=== PATIENT | female | born 1950 | race Asian ===

== ENCOUNTER 2017-02-26 04:22 | Emergency (ER) | payer OTHER ==
[2017-02-26 04:44] VITALS: BP 126/85; PULSE 87; TEMP 98.2; BMI 34.2
--- NOTE | 2017-02-26 04:51 | PDOC ---
History of Present Illness - General Chief Complaint: Hematuria Stated Complaint: BLOOD IN URINE Time Seen by Provider: 02/26/17 04:34 - History of Present Illness Initial Comments: 02/26/17 04:43 CHIEF COMPLAINT: blood in urine HISTORY OF PRESENT ILLNESS: 66 year old female with significant past medical history of HTN, HLD, diabetes, and gastritis who presents to the ED with hematuria x 1 day. Patient reports that she noticed blood in her urine starting last night at 10:30. She has had UTIs in the past "but never this much blood." PAST MEDICAL HISTORY: Denies past medical history FAMILY HISTORY: Denies SOCIAL HISTORY: Denies tobacco, alcohol, illicit drug use. SURGICAL HISTORY: Denies ALLERGIES: No known drug allergies REVIEW OF SYSTEMS General/Constitutional: Denies fever or chills. Denies weakness, weight change. HEENT: Denies change in vision. Denies ear pain or discharge. Denies sore throat. Cardiovascular: Denies chest pain or shortness of breath. Respiratory: Denies cough, wheezing, or hemoptysis. Gastrointestinal: Denies nausea, vomiting, diarrhea or constipation. Denies rectal bleeding. Genitourinary: Dysuria, hematuria, urinary frequency. Musculoskeletal: Denies joint or muscle swelling or pain. Denies neck or back pain. Skin and breasts: Denies rash or easy bruising. Neurologic: Denies headache, vertigo, loss of consciousness, or loss of sensation. PHYSICAL EXAM General Appearance: Well-appearing, appropriately dressed. No apparent distress , no intoxication. HEENT: EOMI, PERRLA. Respiratory/Chest: Lungs CTAB. Cardiovascular: RRR. S1, S2. Gastrointestinal/Abdominal: Normal bowel sounds. Abdomen soft, non-distended. No tenderness or rebound tenderness. No organomegaly, pulsatile mass, guarding , hernia, hepatomegaly, splenomegaly. Musculoskeletal/Extremities: Normal inspection. FROM of all extremities, normal capillary refill. Pelvis Stable. No CVA tenderness. No tenderness to extremities, pedal edema, swelling, erythema or deformity. Integumentary: Appropriate color, dry, warm. No cyanosis, erythema, jaundice or rash Neurologic: agricultural produce sorter II-XII intact. Fully oriented, alert. Appropriate mood/affect. Motor strength 5/5. No appreciable EOM palsy, facial droop or sensory deficit. 02/26/17 05:22 Past History - Past Medical History Allergies/Adverse Reactions: Allergies Allergy/AdvReac Type Severity Reaction Status Date / Time No Known Allergies Allergy Verified 02/26/17 04:41 Home Medications: Ambulatory Orders Aspirin Coated [Ecotrin -] 81 mg PO DAILY 10/24/13 Atenolol [Tenormin -] 25 mg PO 10/24/13 Cetirizine HCl 10 mg PO 10/24/13 Metformin HCl [Glucophage -] 500 mg PO 10/24/13 Omeprazole [Prilosec (RX)] 20 mg PO DAILY 10/24/13 Simvastatin [Zocor -] 20 mg PO HS 10/24/13 Famotidine [Pepcid] 20 mg PO BID #30 tablet 06/03/15 Mag Hydrox/Al Hydrox/Simeth [Mylanta Suspension -] 30 ml PO Q6H #1 bottle Nitrofurantoin Macrocrystal [Nitrofurantoin] 100 mg PO BID #20 capsule 02/26/17 Phenazopyridine HCl [Pyridium] 100 mg PO TID PRN #21 tablet 02/26/17 Diabetes: Yes GI Disorders: Yes HTN: Yes Hypercholesterolemia: Yes Suicide Attempt (Hx): No - Immunization History Immunization Up to Date: Yes - Psycho/Social/Smoking Cessation Hx Anxiety: No Suicidal Ideation: No Smoking Status: No Smoking History: Never smoked Have you smoked in the past 12 months: No Number of Cigarettes Smoked Daily: 0 Cigars Per Day: 0 Hx Alcohol Use: No Drug/Substance Use Hx: No Substance Use Type: None Medical Decision Making - Medical Decision Making 02/26/17 05:24 66 year old female with significant past medical history of HTN, HLD, diabetes , and gastritis who presents to the ED with hematuria x 1 day. -UA, Ucx -Nitrofurantoin -Pyridium *DC/Admit/Observation/Transfer Diagnosis at time of Disposition: UTI (urinary tract infection) Qualifiers: Urinary tract infection type: site unspecified Hematuria presence: with hematuria Qualified Code(s): N39.0 - Urinary tract infection, site not specified - Discharge Dispostion Disposition: HOME Condition at time of disposition: Stable - Prescriptions Prescriptions: Nitrofurantoin Macrocrystal [Nitrofurantoin] 100 mg PO BID #20 capsule Phenazopyridine HCl [Pyridium] 100 mg PO TID PRN #21 tablet PRN Reason: urinary pain - Referrals Referrals: Kay Monreal MD [Primary Care Provider] - Riki Frost MD [Staff Physician] - - Patient Instructions Printed Discharge Instructions: DI for Urinary Tract Infection (UTI) Additional Instructions: Please take medications as prescribed. As discussed, you need to follow up with the urologist within the next 2-3 days for further evaluation of your recurrent UTIs. If you experience any fever, chills, persistent vomiting, diarrhea, or any new or worsening symptoms, please return to the ER.
[2017-02-26 05:16] LABS: PH,URINE 6.5 (5.0-8.0); URINE BILIRUBIN NEGATIVE (NEGATIVE); URINE COLOR RED; URINE GLUCOSE (UA) NEGATIVE (NEGATIVE); URINE KETONE TRACE (NEGATIVE); URINE UROBILINOGEN 0.2 mg/dL (0.2-1.0)
[2017-02-26 05:19] LABS: URINE APPEARANCE TURBID; URINE BLOOD 3+ (NEGATIVE); URINE LEUK ESTERASE TRACE (NEGATIVE); URINE NITRITE POSITIVE (NEGATIVE); URINE PROTEIN 3+ (NEGATIVE)
[2017-02-26] MEDS ORDERED: PHENAZOPYRIDINE HCL 100 MG TABLET (FP) PO ONE (05:20)
--- NOTE | 2017-02-26 05:25 | PDOC ---
*Physical Exam - Vital Signs Last Vital Signs Temp Pulse Resp BP Pulse Ox 98.2 F 87 14 126/85 100 02/26/17 04:42 02/26/17 04:42 02/26/17 04:42 02/26/17 04:42 02/26/17 04:42 ED Treatment Course - ADDITIONAL ORDERS Additional order review: Laboratory Results 02/26/17 04:43 Urine Color Red Urine Appearance Turbid Urine pH 6.5 D Urine Protein 3+ H Urine Glucose (UA) Negative Urine Ketones Trace H Urine Blood 3+ H Urine Nitrite Positive Urine Bilirubin Negative Urine Urobilinogen 0.2 Ur Leukocyte Esterase Trace H Medical Decision Making - Medical Decision Making 02/26/17 05:25 agree with care from GANESH Lagunas *DC/Admit/Observation/Transfer Diagnosis at time of Disposition: UTI (urinary tract infection) - Discharge Dispostion Disposition: HOME Condition at time of disposition: Stable - Prescriptions Prescriptions: Nitrofurantoin Macrocrystal [Nitrofurantoin] 100 mg PO BID #20 capsule Phenazopyridine HCl [Pyridium] 100 mg PO TID PRN #21 tablet PRN Reason: urinary pain - Referrals Referrals: Riki Frost MD [Staff Physician] - Kay Monreal MD [Primary Care Provider] - - Patient Instructions Printed Discharge Instructions: DI for Urinary Tract Infection (UTI) Additional Instructions: Please take medications as prescribed. As discussed, you need to follow up with the urologist within the next 2-3 days for further evaluation of your recurrent UTIs. If you experience any fever, chills, persistent vomiting, diarrhea, or any new or worsening symptoms, please return to the ER.
[2017-02-26] MEDS ORDERED: PHENAZOPYRIDINE HCL 100 MG TABLET (FP) ONE (05:28)
[2017-02-26] MEDS ORDERED: NITROFURANTOIN MACROCRYSTAL 50 MG CAPSULE (FP) ONE (05:28)
[2017-02-26] MEDS ORDERED: NITROFURANTOIN MACROCRYSTAL 50 MG CAPSULE (FP) PO SCH (05:30)
[2017-02-26] MEDS ORDERED: ONDANSETRON *ODT* 4 MG TABLET SL ONE (06:10)
[2017-02-26] MEDS ORDERED: ONDANSETRON *ODT* 4 MG TABLET ONE (06:12)
[2017-02-26 06:52] LABS: URINE RBC >100 /hpf (0-3)
[2017-02-26 06:53] LABS: URINE BACTERIA FEW /hpf (NONE SEEN)
== END 2017-02-26 06:33 | disposition home or self-care (01) ==
LOC: JER 04:22
DX: N39.0 Urinary tract infection, site not specified (principal); R31.9 Hematuria, unspecified; I10 Essential (primary) hypertension; E78.00 Pure hypercholesterolemia, unspecified; E78.5 Hyperlipidemia, unspecified; E11.9 Type 2 diabetes mellitus without complications; K29.70 Gastritis, unspecified, without bleeding
CPT/HCPCS: 81003; 81015; 87086; 99281-25

== ENCOUNTER 2020-06-15 20:12 | Emergency (ER) | payer OTHER ==
[2020-06-15 20:31] VITALS: BMI 31.8
--- OUTSIDE RECORDS SUMMARY | 2020-06-15 20:32 | XMS ---
:1950 Author Organization [facility] Support Name Relationship Address Phone UE Unavailable Unavailable Unavailable [employer] [address] [address] [place] [address] Re-disclosure Warning The records that you are about to access may contain information from federally- assisted alcohol or drug abuse programs. If such information is present, then the following federally mandated warning applies: This information has been disclosed to you from records protected by federal confidentiality rules (42 CFR part 2). The federal rules prohibit you from making any further disclosure of this information unless further disclosure is expressly permitted by the written consent of the person to whom it pertains or as otherwise permitted by 42 CFR part 2. A general authorization for the release of medical or other information is NOT sufficient for this purpose. The Federal rules restrict any use of the information to criminally investigate or prosecute any alcohol or drug abuse patient.The records that you are about to access may contain highly sensitive health information, the redisclosure of which is protected by Article 27-F of the [facility] Public Health law. If you continue you may haveaccess to information: Regarding HIV / AIDS; Provided by facilities licensed or operated by the [facility] Office of Mental Health; or Provided by the [facility] Office for People With Developmental Disabilities. If such information is present, then the following [facility] mandated warning applies: This information has been disclosed to you from confidential records which are protected by state law. State law prohibits you from making any further disclosure of this information without the specific written consent of the person to whom it pertains, or as otherwise permitted by law. Any unauthorized further disclosure in violation of state law may result in a fine or senior care sentence or both. A general authorization for the release of medical or other information is NOT sufficient authorization for further disclosure. Encounters Encounter Providers Location Date Indications Data Source(s ) Outpatient [facility] 06/04/2019 eCW3 ([facility] 12:00:00 AM Health Care) EDT - 06/04/2019 12:00:00 AM EDT [facility]patient [facility] 05/21/2019 eCW3 ([facility] 12:00:00 AM Health Care) EDT - 05/21/2019 12:00:00 AM EDT Immunizations Vaccine Date Status Description Data Source(s) pneumococcal 05/21/2019 completed eCW3 ([facility] polysaccharide PPV23 09:06:00 AM EDT [facility]) pneumococcal 05/21/2019 completed eCW3 ([facility] polysaccharide PPV23 09:06:00 AM EDT [facility]) Medications Medication Brand Start Product Dose Route Administrative Pharmacy [facility] Indications Reaction Description Data Name Date Form Instructions Instructions Source(s) 120 ACTUAT Floven .0 active Flovent HFA eCW3 Fluticasone t HFA 2018 {puff 220 MCG/ACT ([facility] propionate 220 12:00: } [facility] 0.22 MCG/AC 00 AM Health MG/ACTUAT T EDT Care) Metered Dose Inhaler [Flovent] Flovent HFA 220 MCG/ACT 200 ACTUAT Ventol 06/04/ 2.0 active Ventolin HFA eCW3 Albuterol in HFA 2018 {puff 108 (90 (Hud son 0.09 108 12:00: s_as_ Base) [facility] MG/ACTUAT (90 00 AM neede MCG/ACT Healt h Metered Base) EDT d} Care) Dose MCG/AC Inhaler T [Ventolin] Ventolin HFA 108 (90 Base) MCG/ACT 120 ACTUAT Floven 1.0 active Flovent HFA eCW3 Fluticasone t HFA 2018 {puff 220 MCG/ACT ([facility] propionate 220 12:00: } [place] 0.22 MCG/AC 00 AM Health MG/ACTUAT T EDT Care) Metered Dose Inhaler [Flovent] Flovent HFA 220 MCG/ACT 200 ACTUAT Ventol 1025/ 2.0 active Ventolin HFA eCW3 Albuterol in HFA 2018 {puff 108 (90 (Hud son 0.09 108 12:00: s_as_ Base) [facility] MG/ACTUAT (90 00 AM neede MCG/ACT Healt h Metered Base) EDT d} Care) Dose MCG/AC Inhaler T [Ventolin] Ventolin HFA 108 (90 Base) MCG/ACT 200 ACTUAT Ventol 2.0 active Ventolin HFA eCW3 Albuterol in HFA 2018 {puff 108 (90 (Hud son 0.09 108 12:00: s_as_ Base) [facility] MG/ACTUAT (90 00 AM neede MCG/ACT Healt h Metered Base) EDT d} Care) Dose MCG/AC Inhaler T [Ventolin] Ventolin HFA 108 (90 Base) MCG/ACT 120 ACTUAT Floven 1.0 active Flovent HFA eCW3 Fluticasone t HFA 2018 {puff 220 MCG/ACT ([facility] propionate 220 12:00: } [place] 0.22 MCG/AC 00 AM Health MG/ACTUAT T EDT Care) Metered Dose Inhaler [Flovent] Flovent HFA 220 MCG/ACT 120 ACTUAT Floven 1.0 active Flovent HFA eCW3 Fluticasone t HFA 2019 {puff 220 MCG/ACT ([facility] propionate 220 12:00: } [place] 0.22 MCG/AC 00 AM Health MG/ACTUAT T EDT Care) Metered Dose Inhaler [Flovent] Flovent HFA 220 MCG/ACT 200 ACTUAT Ventol 2.0 active Ventolin HFA eCW3 Albuterol in HFA 2018 {puff 108 (90 (Hud son 0.09 108 12:00: s_as_ Base) [facility] MG/ACTUAT (90 00 AM neede MCG/ACT Healt h Metered Base) EDT d} Care) Dose MCG/AC Inhaler T [Ventolin] Ventolin HFA 108 (90 Base) MCG/ACT Aspirin 81 Aspiri 1.0 active Aspirin 81 eCW3 MG Chewable n 81 2018 {tabl MG ([facility] Tablet MG 12:00: et} [facility] 00 AM Health EDT Care) Blood Blood 05/21/ active Blood eCW3 Glucose Glucos 2019 Glucose Test ([facility] Test - e Test 12:00: - [facility] - 00 AM Health EDT Care) Aspirin 81 Aspiri .0 active Aspirin 81 eCW3 MG Chewable n 81 2019 {tabl MG ([facility] Tablet MG 12:00: et} AM Health EDT Care) Blood Blood 05/21/ active Blood eCW3 Glucose Glucos 2018 Glucose Test ([facility] ud[facility] Test - e Test 12:00: - AM Health EDT Care) Blood Blood 05/21/ active Blood eCW3 Glucose Glucos 2018 Glucose Test ([facility] udson Test - e Test 12:00: - AM Health EDT Care) Aspirin 81 Aspiri .0 active Aspirin 81 eCW3 MG Chewable n 81 2018 {tabl MG ([facility] Tablet MG 12:00: et} AM Health EDT Care) Aspirin 81 Aspiri .0 active Aspirin 81 eCW3 MG Chewable n 81 2018 {tabl MG ([facility] Tablet MG 12:00: et} AM Health EDT Care) Blood Blood 05/21/ active Blood eCW3 Glucose Glucos 2018 Glucose Test ([facility] ud[facility] Test - e Test 12:00: - Health EDT Care) Insurance Providers Payer name Policy type Policy ID Covered Covered libertarian's Policy P jamia / Coverage libertarian ID relationship to Donnelly Inf ormation type donnelly MEDICARE [id number] SP [id number] P [place]ICA[place] [id number] [place] [id number] [facility] MEDICARE [id number] SP [id number] A Problems, Conditions, and Diagnoses Code Display Name Description Problem Type Effective Data Sour ce(s) Dates E11.69 Complication due Hyperlipidemia Problem 10/15/2019 eCW3 ([facility] to diabetes associated with type 12:00:00 AM [facility] mellitus type 2 2 diabetes mellitus EST Care) J45.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 Problem 06/04/2019 eCW3 ([facility] persistent asthma asthma with 12:00:00 AM [facility] with exacerbation exacerbation EDT Care) R13.10 Odynophagia Odynophagia Problem 05/21/2019 eCW3 ([facility] 12:00:00 AM [facility] EDT Care) E11.69 Complication due Hyperlipidemia Problem 04/26/2019 eCW3 ([facility] to diabetes associated with type 12:00:00 AM [facility] mellitus type 2 2 diabetes mellitus [facility]) Social History Code Duration Value Status Description Data Source(s ) Smoking 01/17/2020 12:00:00 Never Smoker completed Never Smoker e CW3 ([facility]) Smoking 01/17/2020 12:00:00 Never Smoker completed Never Smoker e CW3 ([facility]) Smoking 01/17/2020 12:00:00 Never Smoker completed Never Smoker e CW3 ([facility]) Smoking 01/17/2020 12:00:00 Never Smoker completed Never Smoker e CW3 ([facility]) Vital Signs ID Date Data Source UNK Name Value Range Interpretation Code Description Data Source(s) Diastolic blood 75 mm[Hg] 75 mm[Hg] eCW3 ([facility]) Systolic blood 117 mm[Hg] 117 mm[Hg] eCW3 ([facility]) Body temperature 98.0 [degF] 98.0 [degF] eCW3 ( [facility]) Heart rate 20 /min 20 /min eCW3 ([facility]) Body mass index 25.45 kg/m2 25.45 kg/m2 eCW3 ([facility] (BMI) [Ratio] [facility]) Body weight 126 [lb_av] 126 [lb_av] eCW3 ([facility]) Body height 59 [in_i] 59 [in_i] eCW3 ([facility]) Diastolic blood 59 mm[Hg] 59 mm[Hg] eCW3 ([facility]) Systolic blood 99 mm[Hg] 99 mm[Hg] eCW3 ([facility]) Body temperature 98.5 [degF] 98.5 [degF] eCW3 ( [facility]) Heart rate 20 /min 20 /min eCW3 ([facility]) Body mass index 25.37 kg/m2 25.37 kg/m2 eCW3 ([facility] (BMI) [Ratio] [facility]) Body weight 125.6 125.6 [lb_av] eCW3 ([facility] [lb_av] [facility]) Body height 59 [in_i] 59 [in_i] eCW3 ([facility]) Patient Treatment Plan of Care Planned Activity Planned Date Details Description Data Source (s) 120 ACTUAT Fluticasone 06/04/2019 12:00:00 eCW3 ([facility] propionate 0.22 AM [facility]) MG/ACTUAT Metered Dose Inhaler [Flovent] 120 ACTUAT Fluticasone 06/04/2019 12:00:00 eCW3 ([facility] propionate 0.22 AM [facility]) MG/ACTUAT Metered Dose Inhaler [Flovent] 120 ACTUAT Fluticasone 06/04/2019 12:00:00 eCW3 ([facility] propionate 0.22 AM [facility]) MG/ACTUAT Metered Dose Inhaler [Flovent] 120 ACTUAT Fluticasone 06/04/2019 12:00:00 eCW3 ([facility] propionate 0.22 AM [facility]) MG/ACTUAT Metered Dose Inhaler [Flovent]
[2020-06-15] MEDS ORDERED: ACETAMINOPHEN 1000 MG/100 ML VIAL (NON FORMULARY) IVPB ONE (21:29)
[2020-06-15] MEDS ORDERED: METOCLOPRAMIDE HCL INJECTION 10 MG/2 ML VIAL IVPUSH ONE (21:29)
[2020-06-15] MEDS ORDERED: LACTATED RINGERS SOLUTION 1000 ML INFUS.BAG IV ONE (21:29)
--- NOTE | 2020-06-15 21:51 | PDOC ---
Documentation entered by Maged Edwards SCRIBE, acting as scribe for Junie Payne DO. Junie Payne DO: This documentation has been prepared by the Fátima barrera inMaged SCRIBE, under my direction and personally reviewed by me in its entirety. I confirm that the documentation accurately reflects all work, treatment, procedures, and medical decision making performed by me. Attending Attestation - Resident Resident Name: Kun Conner - ED Attending Attestation I have performed the following: I have examined & evaluated the patient, The case was reviewed & discussed with the resident, I agree w/resident's findings & plan, Exceptions are as noted - HPI HPI: 06/15/20 22:01 The patient is a 69 year old female with a significant past medical history of overactive bladder, frequent UTIs, GERD, DM, HTN, and HLD who presents to the emergency department for evaluation of a headache that began two days ago s/p fall. The patient reports numbness and swelling of the left side of her head, and left knee pain. She endorses worsened facial numbness and swelling associated with nausea that began this morning. The patient notes chronic right hip pain, and right leg numbness secondary to sciatica. The patient presented to Urgent Care and had a laceration on the left side of her forehead repaired. The patient denies chest/abdominal/back pain, cough, and shortness of breath. Denies fever, chills, nausea, vomiting, and/or any GI symptoms. Denies any symptoms. Denies any other symptoms. Allergies: NKDA Past Surgical History: None reported. Social History: Non smoker. No ETOH or recreational drug use. PCP: Dr. Tyler - Physicial Exam PE: 06/15/20 20:54 Constitutional: Awake, alert, oriented. uncomfortable. Head: Normocephalic. ecchymosis to the L periorbital region and soft tissue swelling of the forehead/supraorbital region Eyes: PERRL. EOMI. Conjunctivae are not pale. ENT: Mucous membranes are moist and intact. Posterior pharynx without exudates or erythema. Uvula midline. Neck: Supple. Full ROM. No lymphadenopathy. Cardiovascular: Regular rate. Regular rhythm. S1, S2 regular. Distal pulses are 2+ and symmetric. Pulmonary/Chest: No evidence of respiratory distress. Clear to auscultation bilaterally No wheezing, rales or rhonchi. Abdominal: Soft and non-distended. There is no tenderness. No rebound, guarding or rigidity. No organomegaly. No palpable masses. Good bowel sounds. Back: No CVA tenderness. no midline ttp, no stepoffs or deformities c/t/l spine Musculoskeletal: No edema. No cyanosis. No clubbing. Full range of motion in all extremities. No calf tenderness. Radial/pedal pulses are intact and 2+ bilaterally, L knee cap ecchymosis and ttp, but FROM of the knee, pelvis stable, Skin: Skin is warm and dry. No petechiae. No purpura. Neurological: Alert and oriented to person, place, and time. Cranial nerves II-XII are grossly intact. Normal speech. Strength is grossly symmetric. No sensory deficits. sensation intact b/l, pulses intact b/l, muscle strength intact all extremities Psychiatric: Good eye contact. Normal interaction, affect and behavior. 06/16/20 00:01 - Medical Decision Making 06/15/20 21:47 a/p: 69yo female with a trip and fall 2 days ago, had her head wound repaired at an urgent care with L facial pain, swelling, ecchymosis, coto, knee pain, paresthesias to the RLE (hx of sciatica) -will send for head ct, facial bones, c spine ct -no midline back ttp -neuro intact -bruising to L knee, but from -pelvis stable -FROM of UE and LE, pulses intact -sensation intact -L facial ttp -will medicate for pain and send for ct imaging -on asa 06/15/20 23:[address], facial bones ct, c spine ct neg without acute findings xrays reviewed and stable - no fx, l spine with arthritis, pending official reads 06/16/20 00:00 cxr clear pt ambulated with mild assistance to the bathroom to give a urine sample pt has been signed out pending ua and further eval of her pain Discharge - Discharge Information Problems reviewed: Yes Clinical Impression/Diagnosis: Periorbital hematoma of left eye, Hematoma of left knee region, Fall, Closed head injury Condition: Stable - Admission No - Follow up/Referral Referrals: Jersey Tyler MD [Primary Care Provider] - - Patient Discharge Instructions Patient Printed Discharge Instructions: DI for Closed Head Injury Additional Instructions: You were seen in the ER after a fall two days ago for left facial pain/numbness, left knee pain, right hip pain, and right leg numbness. We did a physical exam, labs, and extensive imaging, which did not show any emergent problems. Please take tylenol and ibuprofen at home as directed on the label for pain. Please follow up with your primary doctor within one week. Please return to the ER for new, continued, or worsening symptoms, severe headache, vomiting, loss of consciousness, confusion, or any other reason. - Post Discharge Activity
[2020-06-15] MEDS ORDERED: ACETAMINOPHEN INJECTION 100 ML IVPB ONE (21:52)
[2020-06-15] MEDS ORDERED: METOCLOPRAMIDE HCL INJECTION 10 MG/2 ML VIAL ONE (21:52)
--- NOTE | 2020-06-15 21:56 | PDOC ---
History of Present Illness - General Chief Complaint: Pain, Acute Stated Complaint: FALL Time Seen by Provider: 06/15/20 20:38 - History of Present Illness Initial Comments: 06/15/20 21:49 69 year old female, with a significant past medical history of hypertension, hyperlipidemia, diabetes, GERD, frequent UTIs, and overactive bladder, who presents to the [facility] ED two days after a mechanical fall with multiple complains: left facial pain/numbness, left knee pain, right hip pain, and right leg numbness. Patient states she tripped on a curb, fell forward, and hit her head. She went to an urgent care and had a laceration on her left forehead repaired as well as a tetanus booster, but did not get imaging. She reports increased facial swelling and numbness since this morning, as well as nausea without vomiting. She reports new left knee pain. She reports chronic right hip pain and right leg numbness that she attributes to sciatica. She denies LOC, headache, vision changes, fever, back pain. ROS GENERAL/CONSTITUTIONAL: No fever or chills. HEAD, EYES, EARS, NOSE AND THROAT: No change in vision. No ear pain or discharg e. No sore throat. CARDIOVASCULAR: No chest pain or shortness of breath RESPIRATORY: No cough, wheezing, or hemoptysis. GASTROINTESTINAL: nausea. No vomiting, diarrhea or constipation. GENITOURINARY: No dysuria, frequency, or change in urination. MUSCULOSKELETAL: No neck or back pain. SKIN: No rash NEUROLOGIC: No headache, vertigo, loss of consciousness, or change in stren gth/sensation. ENDOCRINE: No increased thirst. No abnormal weight change HEMATOLOGIC/LYMPHATIC: No anemia, easy bleeding, or history of blood clots. ALLERGIC/IMMUNOLOGIC: No hives or skin allergy. PE GENERAL: Awake, alert, and fully oriented, in no acute distress HEAD: swelling, echymosis, and tenderness around left orbit without obvious step off or deformity. Well-healing laceration on left forehead. No hemotympanum or Santo sign. EYES: PERRLA, EOMI, sclera anicteric, conjunctiva clear ENT: Auricles normal inspection, hearing grossly normal, nares patent, oropharynx clear without exudates. Moist mucosa NECK: Normal ROM, supple, no lymphadenopathy, JVD, or masses LUNGS: No distress, speaks full sentences, clear to auscultation bilaterally HEART: Regular rate and rhythm, normal S1 and S2, no murmurs, rubs or gallops, peripheral pulses normal and equal bilaterally. ABDOMEN: Soft, nontender, normoactive bowel sounds. No guarding, no rebound. No masses EXTREMITIES : Mild swelling and tenderness on left knee. Normal range of motion, no edema. No clubbing or cyanosis. NEUROLOGICAL: Cranial nerves II through XII grossly intact. Normal speech, normal gait, no focal sensorimotor deficits SKIN: Warm, Dry, normal turgor, no rashes or lesions noted Back: no midline tenderness Vital Signs Temp Pulse Resp BP Pulse Ox 97.8 F 84 19 121/61 100 06/15/20 20:16 06/15/20 20:16 06/15/20 20:16 06/15/20 20:16 06/15/20 20:16 MDM: 69 year old female, with a significant past medical history of hypertension, hyperlipidemia, diabetes, GERD, frequent UTIs, and overactive bladder, who presents to the [facility] ED two days after a mechanical fall with increased pain/swelling/numbness on left orbit, nausea, and left knee pain. DDx includes ICH, facial bone fracture, cervical spine fracture, knee hematoma vs. fracture, pelvic hematoma vs fracture. -CT head, c-spine, facial bones -left knee plain film -pelvic x-ray -lumbar-sacral x-ray -CXR -CBC, CMP, UA -1000ml LR, reglan 10 IV, tylenol 1000 IV 06/15/20 23:45 No acute pathology on imaging Labs: remarkable for hemoglobin of 9.6 (mildly decreased from baseline). Pain not significantly improved. 06/16/20 00:08 Signed out to night team pending UA Past History - Medical History Allergies/Adverse Reactions: Allergies Allergy/AdvReac Type Severity Reaction Status Date / Time No Known Allergies Allergy Verified 10/03/17 22:19 Home Medications: Ambulatory Orders Aspirin Coated [Ecotrin -] 81 mg PO DAILY 10/24/13 Atenolol [Tenormin -] 25 mg PO DAILY 10/24/13 Omeprazole [Prilosec (RX)] 20 mg PO DAILY 10/24/13 Simvastatin [Zocor -] 20 mg PO HS 10/24/13 metFORMIN HCL [Glucophage -] 500 mg PO DAILY 10/24/13 Famotidine [Pepcid] 20 mg PO BID #30 tablet 06/03/15 Aspirin 81 mg PO DAILY 10/04/17 Estradiol 1 each TD DAILY 10/04/17 Ferrous Sulfate 325 mg PO DAILY 10/04/17 Lipase/Protease/Amylase [Creon Dr 36,000 Units Capsule] 1 each PO DAILY 10/04/17 Metoclopramide HCl 5 mg PO DAILY 10/04/17 Mirabegron [Myrbetriq] 25 mg PO DAILY 10/04/17 Oxybutynin Chloride [Oxybutynin Chloride ER] 10 mg PO DAILY 10/04/17 Sucralfate [Carafate -] 1 gm PO DAILY 10/04/17 COPD: No Diabetes: Yes GI Disorders: Yes (GERD) HTN: Yes Hypercholesterolemia: Yes - Immunization History Immunization Up to Date: Yes - Psycho-Social/Smoking History Smoking Status: No Smoking History: Never smoked Have you smoked in the past 12 months: No Number of Cigarettes Smoked Daily: 0 Cigars Per Day: 0 - Substance Abuse Hx (Audit-C & DAST Scrn) How often the patient has a drink containing alcohol: Never Score: In Men: 4 or > Positive; In Women: 3 or > Positive: 0 Screen Result (Pos requires Nsg. Audit-10AR): Negative In the last yr the pt used illegal drug/Rx for NonMed reason: No Score: Yes response is considered Positive: 0 Screen Result (Positive result requires Nsg. DAST-10): Negative *Physical Exam - Vital Signs Last Vital Signs Temp Pulse Resp BP Pulse Ox 97.8 F 84 19 121/61 100 06/15/20 20:16 06/15/20 20:16 06/15/20 20:16 06/15/20 20:16 06/15/20 20:16 ED Treatment Course - LABORATORY CBC & Chemistry Diagram: 06/15/20 23:33 06/15/20 21:30 - ADDITIONAL ORDERS Additional order review: Laboratory Results 06/15/20 20:20 POC Glucometer 92 06/15/20 20:20 POC Glucometer 92 Discharge - Discharge Information Problems reviewed: Yes Clinical Impression/Diagnosis: Periorbital hematoma of left eye, Hematoma of left knee region, Fall, Closed head injury Condition: Stable Disposition: HOME - Follow up/Referral Referrals: Jersey Tyler MD [Primary Care Provider] - - Patient Discharge Instructions Patient Printed Discharge Instructions: DI for Closed Head Injury Additional Instructions: You were seen in the ER after a fall two days ago for left facial pain/numbness, left knee pain, right hip pain, and right leg numbness. We did a physical exam, labs, and extensive imaging, which did not show any emergent problems. Your hemoglobin was a bit low, and you should discuss this with your primary doctor. Please take tylenol and ibuprofen at home as directed on the label for pain. Please follow up with your primary doctor within one week. Please return to the ER for new, continued, or worsening symptoms, severe headache, vomiting, loss of consciousness, confusion, or any other reason. - Post Discharge Activity
[2020-06-15 22:04] LABS: INR 0.95 (0.83-1.09); PROTHROMBIN TIME (PATIENT) 11.7 SEC (9.7-13.0)
[2020-06-15 22:06] LABS: ACTIVATED PTT 31.6 SECONDS (25.2-36.5)
[2020-06-15 22:22] LABS: POTASSIUM 4.7 mmol/L (3.5-5.1)
[2020-06-15 22:24] LABS: BLOOD UREA NITROGEN 9.2 mg/dL (7-18); CALCIUM 9.1 mg/dL (8.5-10.1)
[2020-06-15 22:28] LABS: CREATININE 0.7 mg/dL (0.55-1.3)
[2020-06-15 22:29] LABS: BILIRUBIN,TOTAL 0.3 mg/dL (0.2-1)
[2020-06-15 23:48] LABS: BASO % 0.8 % (0-2.0); EOS % 3.3 % (0-4.5); HEMATOCRIT 30.1 % (32.4-45.2); HEMOGLOBIN 9.6 GM/dL (10.7-15.3); LYMPH % 38.6 % (8-40); MCH 24.8 pg (25.7-33.7); MCHC 31.9 g/dl (32.0-36.0); MEAN CELL VOLUME 77.7 fl (80-96); MEAN PLT VOLUME 7.7 fl (7.5-11.1); MONO % 8.2 % (3.8-10.2); NEUT % 49.1 % (42.8-82.8); PLATELET COUNT 308 K/MM3 (134-434); RBC 3.88 M/mm3 (3.60-5.2); RDW 16.2 % (11.6-15.6); WHITE BLOOD COUNT 7.5 K/mm3 (4.0-10.0)
[2020-06-16 00:25] VITALS: BP 107/60; PULSE 85; TEMP 97.4
[2020-06-16 00:33] LABS: EPI CELLS 1 /uL (0-25.1); HYALINE CASTS 0 /uL (0-3.1); URINE APPEARANCE CLEAR; URINE BACTERIA 5 /uL (0-1359); URINE BILIRUBIN NEGATIVE (NEGATIVE); URINE COLOR YELLOW; URINE GLUCOSE (UA) NEGATIVE (NEGATIVE); URINE KETONE NEGATIVE (NEGATIVE); URINE LEUK ESTERASE NEGATIVE (NEGATIVE); URINE NITRITE NEGATIVE (NEGATIVE); URINE PROTEIN NEGATIVE (NEGATIVE); URINE RBC 5 /uL (0-23.9); URINE UROBILINOGEN 0.2 mg/dL (0.2-1.0); URINE WBC 2 /uL (0-25.8)
--- NOTE | 2020-06-16 00:37 | PDOC ---
*Physical Exam - Vital Signs Last Vital Signs Temp Pulse Resp BP Pulse Ox 97.4 F L 85 18 107/60 100 06/16/20 00:24 06/16/20 00:24 06/16/20 00:24 06/16/20 00:24 06/16/20 00:24 - Physical Exam 06/16/20 00:[address] Conner: waiting for UA results. -> no infection -> will d/c per instructions ED Treatment Course - LABORATORY CBC & Chemistry Diagram: 06/15/20 23:33 06/15/20 21:30 - ADDITIONAL ORDERS Additional order review: Laboratory Results 06/16/20 06/15/20 06/15/20 00:05 21:30 21:30 PT with INR 11.70 INR 0.95 PTT (Actin FS) 31.6 Sodium 135 L Potassium 4.7 Chloride 104 Carbon Dioxide 26 Anion Gap 6 L BUN 9.2 Creatinine 0.7 Est GFR (CKD-EPI)AfAm 103.18 Est GFR (CKD-EPI)NonAf 89.03 POC Glucometer Random Glucose 83 Calcium 9.1 Total Bilirubin 0.3 AST 20 ALT 18 Alkaline Phosphatase 114 Total Protein 8.0 Albumin 4.0 Urine Color Yellow Urine Appearance Clear Urine pH 6.0 Ur Specific Halma 1.004 L Urine Protein Negative Urine Glucose (UA) Negative Urine Ketones Negative Urine Blood Trace Urine Nitrite Negative Urine Bilirubin Negative Urine Urobilinogen 0.2 Ur Leukocyte Esterase Negative Urine WBC (Auto) 2 Urine RBC (Auto) 5 Urine Casts (Auto) 0 U Epithel Cells (Auto) 1 Urine Bacteria (Auto) 5 06/15/20 20:20 PT with INR INR PTT (Actin FS) Sodium Potassium Chloride Carbon Dioxide Anion Gap BUN Creatinine Est GFR (CKD-EPI)AfAm Est GFR (CKD-EPI)NonAf POC Glucometer 92 Random Glucose Calcium Total Bilirubin AST ALT Alkaline Phosphatase Total Protein Albumin Urine Color Urine Appearance Urine pH Ur Specific Halma Urine Protein Urine Glucose (UA) Urine Ketones Urine Blood Urine Nitrite Urine Bilirubin Urine Urobilinogen Ur Leukocyte Esterase Urine WBC (Auto) Urine RBC (Auto) Urine Casts (Auto) U Epithel Cells (Auto) Urine Bacteria (Auto) 06/15/20 06/15/20 06/15/20 23:33 21:30 20:20 RBC 3.88 Cancelled MCV 77.7 L Cancelled MCHC 31.9 L Cancelled RDW 16.2 H Cancelled MPV 7.7 Cancelled Neutrophils % 49.1 Cancelled Lymphocytes % 38.6 Cancelled Monocytes % 8.2 Cancelled Eosinophils % 3.3 Cancelled Basophils % 0.8 Cancelled POC Glucometer 92 - Medications Given in the ED: ED Medications Discontinued Medications Generic Name Dose Route Start Last Admin Trade Name Rene PRN Reason Stop Dose Admin Acetaminophen 1,000 mg 06/15/20 21:29 06/15/20 22:12 Ofirmev Injection - IVPB 06/15/20 21:30 1,000 mg ONCE ONE Administration Lactated Ringer's 1,000 ml 06/15/20 21:29 06/15/20 22:12 Lactated Ringers Solution IV 06/15/20 21:30 1,000 ml ONCE ONE Administration Metoclopramide HCl 10 mg 06/15/20 21:29 06/15/20 22:12 Reglan Injection - IVPUSH 06/15/20 21:30 10 mg ONCE ONE Administration Discharge - Discharge Information Problems reviewed: Yes Clinical Impression/Diagnosis: Periorbital hematoma of left eye, Hematoma of left knee region Fall Qualifiers: Encounter type: initial encounter Qualified Code(s): W19.XXXA - Unspecified fall, initial encounter Closed head injury Qualifiers: Encounter type: initial encounter Qualified Code(s): S09.90XA - Unspecified i njury of head, initial encounter Condition: Stable Disposition: HOME - Follow up/Referral Referrals: Jersey Tyler MD [Primary Care Provider] - - Patient Discharge Instructions Patient Printed Discharge Instructions: DI for Closed Head Injury Additional Instructions: You were seen in the ER after a fall two days ago for left facial pain/numbness, left knee pain, right hip pain, and right leg numbness. We did a physical exam, labs, and extensive imaging, which did not show any emergent problems. Your hemoglobin was a bit low, and you should discuss this with your primary doctor. Please take tylenol and ibuprofen at home as directed on the label for pain. Please follow up with your primary doctor within one week. Please return to the ER for new, continued, or worsening symptoms, severe headache, vomiting, loss of consciousness, confusion, or any other reason. - Post Discharge Activity
== END 2020-06-16 01:12 | disposition home or self-care (01) ==
LOC: JER 20:12
PROC: 3E033NZ Introduction of Analgesics, Hypnotics, Sedatives into Peripheral Vein, Percutaneous Approach (ICD-10-PCS; principal; 2020-06-15)
PROC: 3E033GC Introduction of Other Therapeutic Substance into Peripheral Vein, Percutaneous Approach (ICD-10-PCS; 2020-06-15)
DX: S00.12XA Contusion of left eyelid and periocular area, initial encounter (principal); S80.02XA Contusion of left knee, initial encounter; S09.90XA Unspecified injury of head, initial encounter; W19.XXXA Unspecified fall, initial encounter
CPT/HCPCS: 36415; 70450-TC; 70486-TC; 71045-TC-FY; 72100-TC-FY; 72125-TC; 72170-TC-FY; 73562-TC-LT-FY; 80053; 81003; 82962; 85025; 85610; 85730; 99285-25; J0131

== ENCOUNTER 2020-06-28 21:25 | Emergency (ER) | payer OTHER ==
[2020-06-28] MEDS ORDERED: SODIUM CHLORIDE 1,000 ML IV STA (21:53)
[2020-06-28] MEDS ORDERED: FAMOTIDINE 20 MG/50 ML IVPB 20 MG/50 ML MG IVPB ONE ×2 (21:53→23:15)
[2020-06-28] MEDS ORDERED: METOCLOPRAMIDE HCL INJECTION 10 MG/2 ML VIAL IVPB ONE (21:53)
[2020-06-28] MEDS ORDERED: ACETAMINOPHEN 1000 MG/100 ML VIAL (NON FORMULARY) IVPB ONE (21:53)
[2020-06-28 21:55] VITALS: TEMP 98.4; BMI 27.0
[2020-06-28] MEDS ORDERED: MAG HYDROX/AL HYDROX/SIMETH 30 ML UNIT-DOSE CUP PO ONE (22:03)
[2020-06-28] MEDS ORDERED: ACETAMINOPHEN INJECTION 100 ML IVPB ONE (23:15)
[2020-06-28] MEDS ORDERED: MAG HYDROX/AL HYDROX/SIMETH 30 ML UNIT-DOSE CUP ONE (23:21)
[2020-06-28 23:23] LABS: BASO % 0.5 % (0-2.0); EOS % 4.5 % (0-4.5); HEMATOCRIT 32.2 % (32.4-45.2); HEMOGLOBIN 10.3 GM/dL (10.7-15.3); LYMPH % 30.9 % (8-40); MCH 24.9 pg (25.7-33.7); MEAN CELL VOLUME 77.6 fl (80-96); MEAN PLT VOLUME 7.4 fl (7.5-11.1); MONO % 6.6 % (3.8-10.2); NEUT % 57.5 % (42.8-82.8); PLATELET COUNT 320 K/MM3 (134-434); RBC 4.15 M/mm3 (3.60-5.2); RDW 16.2 % (11.6-15.6); WHITE BLOOD COUNT 7.3 K/mm3 (4.0-10.0)
[2020-06-28 23:48] LABS: CHLORIDE 102 mmol/L (98-107); POTASSIUM 4.4 mmol/L (3.5-5.1); SODIUM 136 mmol/L (136-145)
[2020-06-28 23:50] LABS: CALCIUM 10.2 mg/dL (8.5-10.1)
[2020-06-28 23:51] LABS: ANION GAP 6 MMOL/L (8-16); BLOOD UREA NITROGEN 11.4 mg/dL (7-18); CO2 28 mmol/L (21-32); GLUCOSE,RANDOM 111 mg/dL (74-106); LIPASE 301 U/L (73-393)
[2020-06-28 23:54] LABS: CREATININE 0.7 mg/dL (0.55-1.3); SGOT/AST 11 U/L (15-37); SGPT/ALT 18 U/L (13-61)
[2020-06-28 23:55] LABS: BILIRUBIN,TOTAL 0.3 mg/dL (0.2-1)
[2020-06-28 23:56] LABS: TOT PROT 8.1 g/dl (6.4-8.2)
[2020-06-28 23:57] LABS: ALK PHOS 130 U/L (45-117)
[2020-06-28] MEDS ORDERED: METOCLOPRAMIDE HCL INJECTION 10 MG/2 ML VIAL ONE (23:59)
[2020-06-29 01:20] VITALS: BP 132/62; PULSE 76
[2020-06-29 01:22] LABS: EPI CELLS 2 /uL (0-25.1); HYALINE CASTS 0 /uL (0-3.1); PH,URINE 5.5 (5.0-8.0); URINE APPEARANCE CLEAR; URINE BACTERIA 20 /uL (0-1359); URINE BILIRUBIN NEGATIVE (NEGATIVE); URINE COLOR YELLOW; URINE GLUCOSE (UA) NEGATIVE (NEGATIVE); URINE KETONE NEGATIVE (NEGATIVE); URINE LEUK ESTERASE TRACE (NEGATIVE); URINE NITRITE NEGATIVE (NEGATIVE); URINE PROTEIN NEGATIVE (NEGATIVE); URINE RBC 7 /uL (0-23.9); URINE UROBILINOGEN 0.2 mg/dL (0.2-1.0); URINE WBC 17 /uL (0-25.8)
== END 2020-06-29 01:09 | disposition home or self-care (01) ==
LOC: JER 21:25
PROC: 3E0333Z Introduction of Anti-inflammatory into Peripheral Vein, Percutaneous Approach (ICD-10-PCS; principal; 2020-06-28)
PROC: 3E033GC Introduction of Other Therapeutic Substance into Peripheral Vein, Percutaneous Approach (ICD-10-PCS; 2020-06-28)
PROC: 3E033GC Introduction of Other Therapeutic Substance into Peripheral Vein, Percutaneous Approach (ICD-10-PCS; 2020-06-28)
PROC: 3E033GC Introduction of Other Therapeutic Substance into Peripheral Vein, Percutaneous Approach (ICD-10-PCS; 2020-06-28)
PROC: 3E0337Z Introduction of Electrolytic and Water Balance Substance into Peripheral Vein, Percutaneous Approach (ICD-10-PCS; 2020-06-28)
DX: R10.13 Epigastric pain (principal)
CPT/HCPCS: 36415; 71046-TC-FY; 80053; 81003; 82550; 83690; 84484; 85025; 93005; 93010; 99285-25; J0131

== ENCOUNTER 2021-11-08 17:05 | Emergency (ER) | payer OTHER ==
[2021-11-08 17:27] VITALS: BP 109/64; PULSE 89; TEMP 98.3; BMI 32.4
[2021-11-08] MEDS ORDERED: MAG HYDROX/AL HYDROX/SIMETH 30 ML UNIT-DOSE CUP PO ONE (18:21)
[2021-11-08] MEDS ORDERED: PANTOPRAZOLE SODIUM 40 MG VIAL IVPUSH ONE (18:21)
[2021-11-08] MEDS ORDERED: SIMETHICONE 40 MG/0.6 ML BOTTLE PO ONE (18:22)
[2021-11-08] MEDS ORDERED: DICYCLOMINE HCL 20 MG TABLET PO ONE (18:22)
[2021-11-08] MEDS ORDERED: DICYCLOMINE HCL 10 MG CAPSULE ONE (18:42)
[2021-11-08] MEDS ORDERED: PANTOPRAZOLE SODIUM 40 MG VIAL ONE (18:43)
[2021-11-08] MEDS ORDERED: SIMETHICONE 80 MG TAB.CHEW (FP) ONE (18:43)
[2021-11-08] MEDS ORDERED: MAG HYDROX/AL HYDROX/SIMETH 30 ML UNIT-DOSE CUP ONE (18:43)
[2021-11-08 19:30] LABS: BASO % 0.3 % (0-2.0); EOS % 3.7 % (0-4.5); HEMATOCRIT 34.4 % (32.4-45.2); HEMOGLOBIN 11.2 GM/dL (10.7-15.3); LYMPH % 35.6 % (8-40); MCH 27.7 pg (25.7-33.7); MCHC 32.6 g/dl (32.0-36.0); MEAN PLT VOLUME 7.6 fl (7.5-11.1); NEUT % 52.4 % (42.8-82.8); PLATELET COUNT 261 10^3/uL (134-434); RBC 4.05 M/mm3 (3.60-5.2); RDW 14.8 % (11.6-15.6); WHITE BLOOD COUNT 7.1 K/mm3 (4.0-10.0)
[2021-11-08 19:52] LABS: BLOOD UREA NITROGEN 12.7 mg/dL (7-18); CALCIUM 9.4 mg/dL (8.5-10.1)
[2021-11-08 19:55] LABS: CREATININE 0.8 mg/dL (0.55-1.3)
[2021-11-08 19:56] LABS: TOT PROT 7.6 g/dl (6.4-8.2)
[2021-11-08 19:57] LABS: BILIRUBIN,TOTAL 0.2 mg/dL (0.2-1)
[2021-11-08] MEDS ORDERED: SODIUM CHLORIDE 0.9% 500 ML INFUS.BAG IV ONE (20:02)
== END 2021-11-08 22:27 | disposition home or self-care (01) ==
LOC: JER 17:05
PROC: 3E033GC Introduction of Other Therapeutic Substance into Peripheral Vein, Percutaneous Approach (ICD-10-PCS; principal; 2021-11-08)
DX: K21.00 Gastro-esophageal reflux disease with esophagitis, without bleeding (principal)
CPT/HCPCS: 36415; 74019-TC-FY; 74177-TC; 80053; 83690; 84484; 85025; 93005; 93010; 99285-25

== ENCOUNTER 2021-12-13 04:08 | Day surgery (SDC) | payer OTHER ==
[2021-12-10 13:52] VITALS: BMI 25.7
[2021-12-13] MEDS ORDERED: KETAMINE HCL 200 MG/20 ML VIAL ONE (07:17)
[2021-12-13 08:26] VITALS: TEMP 98
[2021-12-13 09:06] VITALS: BP 138/72; PULSE 82
== END 2021-12-13 09:43 | disposition home or self-care (01) ==
LOC: JASU-ENDO 04:08
PROVIDERS: ATTEND Internal Medicine Gastroenterology
PROC: 0DB78ZX Excision of Stomach, Pylorus, Via Natural or Artificial Opening Endoscopic, Diagnostic (ICD-10-PCS; 2021-12-13)
PROC: 0DB68ZX Excision of Stomach, Via Natural or Artificial Opening Endoscopic, Diagnostic (ICD-10-PCS; principal; 2021-12-13 08:00)
DX: K29.70 Gastritis, unspecified, without bleeding (principal); K31.7 Polyp of stomach and duodenum; R93.3 Abnormal findings on diagnostic imaging of other parts of digestive tract; I10 Essential (primary) hypertension; E11.9 Type 2 diabetes mellitus without complications
CPT/HCPCS: 88305-TC; 88342-TC

== ENCOUNTER 2022-02-07 04:06 | Day surgery (SDC) | payer OTHER ==
[2022-02-05 15:18] VITALS: BMI 31.2
[2022-02-07 10:18] VITALS: TEMP 97.5
[2022-02-07 11:02] VITALS: BP 118/65; PULSE 82
== END 2022-02-07 11:20 | disposition home or self-care (01) ==
LOC: JASU-ENDO 04:06
PROVIDERS: ATTEND Internal Medicine Gastroenterology
PROC: 0DBM8ZX Excision of Descending Colon, Via Natural or Artificial Opening Endoscopic, Diagnostic (ICD-10-PCS; 2022-02-07)
PROC: 0DBN8ZX Excision of Sigmoid Colon, Via Natural or Artificial Opening Endoscopic, Diagnostic (ICD-10-PCS; 2022-02-07)
PROC: 0DBP8ZX Excision of Rectum, Via Natural or Artificial Opening Endoscopic, Diagnostic (ICD-10-PCS; 2022-02-07)
PROC: 0DBN8ZX Excision of Sigmoid Colon, Via Natural or Artificial Opening Endoscopic, Diagnostic (ICD-10-PCS; principal; 2022-02-07 08:45)
DX: Z12.11 Encounter for screening for malignant neoplasm of colon (principal); D12.4 Benign neoplasm of descending colon; D12.5 Benign neoplasm of sigmoid colon; D12.8 Benign neoplasm of rectum; K64.8 Other hemorrhoids; R10.84 Generalized abdominal pain; I10 Essential (primary) hypertension; E11.9 Type 2 diabetes mellitus without complications; Z79.84 Long term (current) use of oral hypoglycemic drugs
CPT/HCPCS: 82962; 88305-TC

== ENCOUNTER 2022-08-17 22:46 | Emergency (ER) | payer OTHER ==
[2022-08-17 22:55] VITALS: BMI 27.0
[2022-08-18 00:47] LABS: BASO % 0.3 % (0-2.0); EOS % 3.8 % (0-4.5); HEMATOCRIT 33.3 % (32.4-45.2); HEMOGLOBIN 10.8 GM/dL (10.7-15.3); LYMPH % 23.2 % (8-40); MCHC 32.5 g/dl (32.0-36.0); MEAN CELL VOLUME 86.3 fl (80-96); MEAN PLT VOLUME 7.5 fl (7.5-11.1); MONO % 6.5 % (3.8-10.2); NEUT % 66.2 % (42.8-82.8); PLATELET COUNT 226 10^3/uL (134-434); RBC 3.86 M/mm3 (3.60-5.2); WHITE BLOOD COUNT 8.6 K/mm3 (4.0-10.0)
[2022-08-18 01:09] LABS: CALCIUM 9.1 mg/dL (8.5-10.1)
[2022-08-18 01:10] LABS: ALBUMIN 3.9 g/dl (3.4-5.0); BLOOD UREA NITROGEN 16.2 mg/dL (7-18)
[2022-08-18 01:13] LABS: CREATININE 0.8 mg/dL (0.55-1.3)
[2022-08-18 01:14] LABS: BILIRUBIN,TOTAL 0.2 mg/dL (0.2-1); TOT PROT 7.3 g/dl (6.4-8.2)
[2022-08-18 01:18] LABS: INR 0.93 (0.83-1.09); PROTHROMBIN TIME (PATIENT) 10.7 SEC (9.7-13.0)
[2022-08-18] MEDS ORDERED: ACETAMINOPHEN 1000 MG/100 ML BAG IVPB ONE (01:35)
[2022-08-18] MEDS ORDERED: ACETAMINOPHEN INJECTION 100 ML IVPB ONE (01:59)
[2022-08-18 02:17] VITALS: BP 125/89; RESP 16; TEMP 97.6
[2022-08-18 02:29] LABS: EPI CELLS 1 /uL (0-25.1); HYALINE CASTS 0 /uL (0-3.1); PH,URINE 5.5 (5.0-8.0); URINE APPEARANCE CLEAR; URINE BACTERIA 11 /uL (0-1359); URINE BILIRUBIN NEGATIVE (NEGATIVE); URINE COLOR YELLOW; URINE GLUCOSE (UA) NEGATIVE (NEGATIVE); URINE KETONE NEGATIVE (NEGATIVE); URINE LEUK ESTERASE NEGATIVE (NEGATIVE); URINE NITRITE NEGATIVE (NEGATIVE); URINE PROTEIN NEGATIVE (NEGATIVE); URINE RBC 6 /uL (0-23.9); URINE UROBILINOGEN 0.2 mg/dL (0.2-1.0); URINE WBC 5 /uL (0-25.8)
[2022-08-18 04:17] VITALS: PULSE 89
== END 2022-08-18 04:20 | disposition home or self-care (01) ==
LOC: JER 22:46
PROC: 3E033GC Introduction of Other Therapeutic Substance into Peripheral Vein, Percutaneous Approach (ICD-10-PCS; principal; 2022-08-17)
DX: R53.1 Weakness (principal)
CPT/HCPCS: 0241U-QW; 36415; 70450-TC; 71045-TC-FY; 80053; 81003; 82962; 83690; 83735; 84484; 85025; 85610; 85730; 86850; 86900; 86901; 87086; 93005; 93010; 96374; 99285-25

== ENCOUNTER 2023-06-27 13:00 | Emergency (ER) | payer OTHER ==
[2023-06-27 13:05] VITALS: TEMP 97.9; BMI 26.6
[2023-06-27] MEDS ORDERED: FAMOTIDINE 20 MG/50 ML IVPB 20 MG/50 ML MG IVPB ONE ×3 (13:53→14:16)
[2023-06-27] MEDS ORDERED: SIMETHICONE 80 MG TAB.CHEW (FP) PO ONE ×2 (13:54→14:17)
[2023-06-27] MEDS ORDERED: SODIUM CHLORIDE 0.9% 500 ML INFUS.BAG IV ONE (13:56)
[2023-06-27] MEDS ORDERED: SIMETHICONE 80 MG TAB.CHEW (FP) ONE (13:59)
[2023-06-27 14:39] LABS: BASO % 0.5 % (0-2.0); HEMATOCRIT 33.6 % (32.4-45.2); HEMOGLOBIN 11.3 GM/dL (10.7-15.3); LYMPH % 35.5 % (8-40); MCH 28.3 pg (25.7-33.7); MCHC 33.6 g/dl (32.0-36.0); MEAN CELL VOLUME 84.2 fl (80-96); MEAN PLT VOLUME 7.5 fl (7.5-11.1); MONO % 9.6 % (3.8-10.2); NEUT % 43.4 % (42.8-82.8); PLATELET COUNT 278 10^3/uL (134-434); RBC 3.99 M/mm3 (3.60-5.2); RDW 14.2 % (11.6-15.6); WHITE BLOOD COUNT 6.4 K/mm3 (4.0-10.0)
[2023-06-27 15:44] LABS: POTASSIUM 3.9 mmol/L (3.5-5.1)
[2023-06-27 15:50] LABS: CALCIUM 9.2 mg/dL (8.5-10.1)
[2023-06-27 15:51] LABS: ALBUMIN 3.7 g/dl (3.4-5.0)
[2023-06-27 15:54] LABS: BILIRUBIN,TOTAL 0.2 mg/dL (0.2-1); CREATININE 0.7 mg/dL (0.55-1.3); TOT PROT 7.1 g/dl (6.4-8.2)
[2023-06-27 18:12] VITALS: BP 142/61; PULSE 89; RESP 16
== END 2023-06-27 18:15 | disposition home or self-care (01) ==
LOC: JER 13:00
PROC: 3E033GC Introduction of Other Therapeutic Substance into Peripheral Vein, Percutaneous Approach (ICD-10-PCS; principal; 2023-06-27)
DX: R10.9 Unspecified abdominal pain (principal); K29.70 Gastritis, unspecified, without bleeding; K20.90 Esophagitis, unspecified without bleeding; Z20.822 Contact with and (suspected) exposure to COVID-19
CPT/HCPCS: 0241U-QW; 36415; 71046-TC-FY; 74177-TC; 80053; 83690; 84484; 85025; 93005; 93010; 96365; 99285-25; Q9967

== ENCOUNTER 2023-07-28 04:46 | Day surgery (SDC) | payer OTHER ==
[2023-07-25 11:28] VITALS: BMI 32.8
[2023-07-28 11:15] VITALS: TEMP 97.1
[2023-07-28 11:47] VITALS: PULSE 79; RESP 15
[2023-07-28 11:51] VITALS: BP 134/70
== END 2023-07-28 12:00 | disposition home or self-care (01) ==
LOC: JASU-ENDO 04:46
PROVIDERS: ATTEND Internal Medicine Gastroenterology
PROC: 0DB78ZX Excision of Stomach, Pylorus, Via Natural or Artificial Opening Endoscopic, Diagnostic (ICD-10-PCS; 2023-07-28)
PROC: 0DB68ZX Excision of Stomach, Via Natural or Artificial Opening Endoscopic, Diagnostic (ICD-10-PCS; 2023-07-28)
PROC: 0DB28ZX Excision of Middle Esophagus, Via Natural or Artificial Opening Endoscopic, Diagnostic (ICD-10-PCS; 2023-07-28)
PROC: 0DB38ZX Excision of Lower Esophagus, Via Natural or Artificial Opening Endoscopic, Diagnostic (ICD-10-PCS; 2023-07-28)
PROC: 0DB98ZX Excision of Duodenum, Via Natural or Artificial Opening Endoscopic, Diagnostic (ICD-10-PCS; principal; 2023-07-28 10:15)
DX: K29.50 Unspecified chronic gastritis without bleeding (principal); K31.7 Polyp of stomach and duodenum
CPT/HCPCS: 82962; 88305-TC; 88342-TC

== ENCOUNTER 2024-03-01 16:11 | Emergency (ER) | payer OTHER ==
[2024-03-01 16:15] VITALS: BP 167/77; PULSE 86; RESP 18; TEMP 98; BMI 26.6
[2024-03-01] MEDS ORDERED: KETOROLAC TROMETHAMINE 30 MG/1 ML VIAL ONE (19:40)
[2024-03-01] MEDS: KETOROLAC TROMETHAMINE 30 MG/1 ML VIAL IM ONE (19:47)
== END 2024-03-01 20:47 | disposition home or self-care (01) ==
LOC: JER 16:11
PROC: 3E0133Z Introduction of Anti-inflammatory into Subcutaneous Tissue, Percutaneous Approach (ICD-10-PCS; principal; 2024-03-01)
DX: M25.562 Pain in left knee (principal); G89.29 Other chronic pain
CPT/HCPCS: 73562-TC-LT-FY; 96372; 99284-25